=== PATIENT | female | born 1975 | race African-American/Black ===

== ENCOUNTER 2016-05-10 19:27 | Emergency (ER) | payer MEDICAID ==
[~2016-05-10] VITALS: Ht 162.6 cm; Wt 77.1 kg
[~2016-05-10 19:27] MED LIST: AZITHROMYCIN250 MG ORAL; BACTRIM DS TAB1 EAC1 ORAL; BENADRYL50 MG ORAL; CLINDAMYCIN HC150 MG ORAL; IBUPROFEN600 MG ORAL; NKM; ROBAXIN-750750 MG PO; ZANTAC150 MG ORAL
[2016-05-10] MEDS ORDERED: NKM (19:44)
[2016-05-10] MEDS ORDERED: Lidocaine 1% MPF 10mg/ml 5ml INJ ONE (20:15)
[2016-05-10] MEDS ORDERED: Bacitracin Oint UD TOPIC ONE (20:15)
[2016-05-10] MEDS ORDERED: BACTRIM 400-801 EACH ORAL (20:42)
[2016-05-10] MEDS ORDERED: BACITRACIN1 APPLIC TOPIC (20:42)
[2016-05-10] MEDS ORDERED: IBUPROFEN600 MG ORAL (20:42)
[2016-05-10 21:07] VITALS: BP 136/84
[2016-05-10 21:08] VITALS: BP 136/84
--- NOTE | 2016-05-10 21:52 | Emergency Room Report ---
History of Present Illness General Chief Complaint: General Complaint Source: Patient Present Illness HPI The patient is a 41-year-old female presenting with left toe pain which began 2 weeks prior after a visit to the doughnut batter mixer. Pain has been increasing and is now a 10 out of 10 dull ache which is localized to the area. Pain worse with touch. The patient has noticed redness and swelling to the area. The patient denies other symptoms including fever, chills, numbness or tingling, calf swelling, chest pain or shortness of breath Allergies: Coded Allergies: AMOXICILLIN (Unverified Allergy, Unknown, 07/23/13) Patient History Past Medical History: see triage record Pertinent Family History: none Last Menstrual Period: 04/26/2016 Now: No : 2 Para: 2 Reviewed Nursing Documentation: PMH: Agreed, PSxH: Agreed Nursing Documentation-PMH Past Medical History: No Stated History Review of Systems All Other Systems: negative except mentioned in HPI Physical Exam Vital Signs Date Time Temp Pulse Resp B/P Pulse Ox O2 Delivery O2 Flow Rate FiO2 05/10/16 19:36 98.2 66 16 136/84 99 Room Air Sp02 EP Interpretation: reviewed, normal General Appearance: no apparent distress, alert, GCS 15, non-toxic Head: normocephalic, atraumatic Eyes: bilateral eye PERRL, bilateral eye normal inspection Musculoskeletal: back normal, gait/station normal, normal range of motion, non- tender, tender - TTP over L 1st medial nail fold Neurologic: alert, oriented x3, responsive, motor strength/tone normal, sensory intact, speech normal Psychiatric: judgement/insight normal, memory normal, mood/affect normal, no suicidal/homicidal ideation Reflexes: 3+ bicep (R), 3+ bicep (L), 3+ tricep (R), 3+ tricep (L), 3+ knee (R) , 3+ knee (L) Skin: other - There is erythema and edema to the first medial nail fold Lymphatic: no adenopathy Procedures Incision and Drainage Incision and Drainage : Consent: Verbal Site: L 1st toe Blade Size: 11 I & D Procedure: betadine prep, sterile drapes applied, sterile dressing applied Wound Location: lower extremity Wound's Depth, Shape: superficial Wound Length (cm): 2 Wound Explored: contaminated Irrigated w/ Saline (ccs): 100 Anesthesia: 1% Lidocaine Volume Anesthetic (ccs): 4 Splint Applied?: No Sling Applied?: No Patient Tolerated: Well Complications: None Medical Decision Making PA Attestation Dr. Little is my supervising physician. Patient management was discussed with my supervising physician Diagnostic Impression: Primary Impression: Paronychia ER Course The patient is a 41-year-old female presenting with left toe pain which began 2 weeks prior after a visit to the doughnut batter mixer Differential diagnosis considered: Felon, paronychia, sprain Vitals are within normal limits. No apparent distress Left foot: There is erythema and edema to the first medial nail fold. There is fluctuance and tenderness to palpation. No discharge Betadine prep was used to clean the skin and surrounding area. One percent lidocaine without epinephrine was used for digital block. A #11 blade was used to make an incision at the base of the nail. Once the incision was made, purulent material was expressed with blood. The wound was then cleaned and sterile dressing applied. The patient is discharged home with a prescription for Bactrim, Motrin, and bacitracin and will followup with PMD. Patient will continue to keep this area clean and dry. ER precautions are given Last Vital Signs Date Time Temp Pulse Resp B/P Pulse Ox O2 Delivery O2 Flow Rate FiO2 05/10/16 21:08 98.2 16 136/84 99 Room Air 05/10/16 19:36 66 Status: improved Disposition: HOME, SELF-CARE Condition: Improved Scripts Bacitracin (Bacitracin Zinc) 15 Gm Oint...g. 1 APPLIC TOPIC TID, #15 GM Prov: TERZIAN,ALEJANDRO P.A. 05/10/16 Sulfamethoxazole/Trimethoprim (BACTRIM 400-80 MG TABLET*) 1 Each Tablet 1 TAB ORAL TWICE A DAY, #14 TAB Prov: TERZIAN,ALEJANDRO P.A. 05/10/16 Ibuprofen* (MOTRIN*) 600 Mg Tablet 600 MG ORAL Q8H Y for For Pain, #30 TAB 0 Refills Prov: TERZIAN,ALEJANDRO P.A. 05/10/16 [facility] ([facility]P) Patient Instructions: Paronychia Additional Instructions: I discussed my findings with the patient. All questions and concerns have been answered. Treatment and medication compliance have been addressed. I advised the patient that they need to follow up with PMD in 3-5 days. Return to ED if symptoms worsen, new symptoms arise, or if needed for any reason. Patient verbalized understanding of discharge instructions. ALEJANDRO SAMPSON May 10, 2016 21:52
== END 2016-05-10 21:09 | disposition home or self-care (01) ==
LOC: EMR 19:54
DX: L03.032 Cellulitis of left toe (principal); Z88.1 Allergy status to other antibiotic agents
CPT/HCPCS: 10060

== ENCOUNTER 2016-06-27 22:00 | Emergency (ER) | payer MEDICAID ==
[~2016-06-27] VITALS: Ht 162.6 cm; Wt 81.2 kg
[~2016-06-27 22:00] MED LIST changes: +BACITRACIN1 APPLIC TOPIC; +BACTRIM 400-801 EACH ORAL
[2016-06-27 23:05] VITALS: BP_SYST 128; BP_SYST 131; BP_SYST 138; BP_DIAS 73; BP_DIAS 77; BP_DIAS 79
[2016-06-27 23:10] VITALS: BP 122/76
[2016-06-27] MEDS ORDERED: IBUPROFEN600 MG ORAL (23:36)
[2016-06-27 23:49] VITALS: BP 122/76
--- NOTE | 2016-06-28 02:18 | Emergency Room Report ---
History of Present Illness General Chief Complaint: Chest Pain Source: Patient Present Illness HPI Patient is a 41-year-old female presented after increased chest pain. Patient reported having a tightness sensation to the chest. She had associated sore throat as well as a cough. She denied dizziness or lightheadedness. She had not been vomiting or having diarrhea. She denies prior drug use. Patient states that she had not been a smoker. She denies prior cardiac history. She noted having a no numbness or weakness to her extremities. The pain did not radiate. Allergies: Coded Allergies: AMOXICILLIN (Unverified Allergy, Unknown, 07/23/13) Patient History Past Medical History: see triage record Last Menstrual Period: june Reviewed Nursing Documentation: PMH: Agreed, PSxH: Agreed Nursing Documentation-PMH Past Medical History: No Stated History Review of Systems All Other Systems: negative except mentioned in HPI Physical Exam Vital Signs Date Time Temp Pulse Resp B/P Pulse Ox O2 Delivery O2 Flow Rate FiO2 06/27/16 22:12 97.9 66 18 142/84 98 Room Air Sp02 EP Interpretation: reviewed, normal General Appearance: normal inspection, well appearing, no apparent distress, alert, GCS 15, non-toxic Head: atraumatic ENT: normal ENT inspection, hearing grossly normal, normal voice Neck: normal inspection, full range of motion, supple, no bony tend Respiratory: normal inspection, lungs clear, normal breath sounds, no respiratory distress, no retraction, no wheezing Cardiovascular #1: regular rate, rhythm, no edema Gastrointestinal: normal inspection, normal bowel sounds, non tender, soft, no guarding, no hernia Genitourinary: no CVA tenderness Musculoskeletal: normal inspection, back normal, normal range of motion, Leo' s Sign negative, other - trace edema symmmetric BLE Neurologic: normal inspection, alert, oriented x3, responsive, duplex trimmer III-XII nml as tested, speech normal Psychiatric: normal inspection, judgement/insight normal, mood/affect normal Skin: normal inspection, normal color, no rash Medical Decision Making Diagnostic Impression: Primary Impression: Chest pain ER Course Patient presented for chest pain. Differential diagnosis included but was not limited to acute coronary syndrome, pulmonary embolism, pneumonia, aortic dissection, shingles, pneumothorax, aortic dissection, esophageal rupture, pericarditis. Patient's benign exam and does not appear to require any further imaging or laboratory testing at this time. A bedside ultrasound showed no evidence of pericardial effusion. Chest x-ray one view interpreted by me showed normal cardiac size without evident infiltrate or pneumo thorax. The patient given prescription for ibuprofen. The patient is advised to follow up with primary care doctor in 1-2 days. Patient is advised to return if any worsening condition or if any changes in status that are concerning. Labs Test 06/27/16 22:45 Urine HCG, Qualitative Negative EKG Diagnostic Results Rate: normal Rhythm: NSR - 60, other - low voltage ST Segments: no acute changes Chest X-Ray Diagnostic Results EP Interpretation: Yes Findings: no consolidation, no effusion, no pneumothorax, no acute cardiopulmonary disease Number of Views: 1 Last Vital Signs Date Time Temp Pulse Resp B/P Pulse Ox O2 Delivery O2 Flow Rate FiO2 06/27/16 23:49 97.9 62 12 122/76 98 Room Air Status: improved Disposition: HOME, SELF-CARE Condition: Stable Scripts Ibuprofen* (MOTRIN*) 600 Mg Tablet 600 MG ORAL Q8H Y for For Pain, #30 TAB 0 Refills Prov: Godfrey Arana 06/27/16 Referrals: [facility] ([facility]P) Patient Instructions: Nonspecific Chest Pain Godfrey Arana June 28, 2016 02:18
--- NOTE | 2016-06-28 12:33 | Diagnostic Imaging Report ---
Indication: Chest Pain Comparison: 08/17/13 A single view chest radiograph was obtained. Findings: Cardiomediastinal appearance is within normal limits for age. Pulmonary vascularity is appropriate. The diaphragmatic contour is smooth and costophrenic angles are sharp. No pleural effusions are identified. The bones are unremarkable. Impression: No acute findings
--- NOTE | 2016-06-29 17:34 | Cardiology Report ---
APPROVED REPORT EKG Measurement Heart [id number] Normal sinus rhythm Low voltage QRS Borderline ECG
== END 2016-06-27 23:50 | disposition home or self-care (01) ==
LOC: EMR 22:15
DX: R07.9 Chest pain, unspecified (principal); Z88.1 Allergy status to other antibiotic agents
CPT/HCPCS: 71010; 81025; 93005; 99283

== ENCOUNTER 2016-12-24 00:19 | Emergency (ER) | payer MEDICAID ==
[~2016-12-24] VITALS: Ht 162.6 cm; Wt 81.6 kg
[2016-12-24] MEDS ORDERED: Metoclopramide 10mg/2ml Inj IVP ONE (00:45)
[2016-12-24] MEDS ORDERED: DiphenhydrAMINE 50mg/ml Inj IVP ONE (00:45)
[2016-12-24 00:53] LABS: BASOPHILS % (AUTO) 3.7 % (0.0-2.0); EOSINOPHILS % (AUTO) 0.9 % (0.0-3.0); LYMPHOCYTES % (AUTO) 20.4 % (20.0-45.0); MEAN CORPUSCULAR HEMOGLOBIN 28.2 PG (27.0-31.0); MEAN CORPUSCULAR HGB CONC 31.9 G/DL (32.0-36.0); MEAN CORPUSCULAR VOLUME 88 FL (80-99); MEAN PLATELET VOLUME 6.1 FL (6.5-10.1); MONOCYTES % (AUTO) 18.2 % (1.0-10.0); NEUTROPHILS % (AUTO) 56.7 % (45.0-75.0); PLATELET COUNT 295 K/UL (150-450); RED BLOOD COUNT 4.66 M/UL (4.20-5.40); RED CELL DISTRIBUTION WIDTH 12.6 % (11.6-14.8); WHITE BLOOD COUNT 4.5 K/UL (4.8-10.8)
[2016-12-24 01:25] LABS: ALANINE AMINOTRANSFERASE 19 U/L (12-78); ANION GAP 10 mmol/L (5-15); ASPARTATE AMINO TRANSFERASE 11 U/L (15-37); CARBON DIOXIDE 26 MMOL/L (21-32); CHLORIDE 103 MMOL/L (98-107); CREATININE 0.8 MG/DL (0.55-1.30); GLOMERULAR FILTRATION RATE > 60 mL/min (>60); LIPASE 272 U/L (73-393); POTASSIUM 3.5 MMOL/L (3.5-5.1); SODIUM 139 MMOL/L (136-145); TOTAL PROTEIN 7.6 G/DL (6.4-8.2)
[2016-12-24 01:29] LABS: APPEARANCE,URINE CLEAR; KETONES,URINE NEGATIVE (NEGATIVE); LEUKOCYTE ESTERASE ,URINE 1+ (NEGATIVE); NITRITE,URINE NEGATIVE (NEGATIVE); PH,URINE 7 (4.5-8.0); PROTEIN,URINE NEGATIVE (NEGATIVE); UROBILINOGEN,URINE 1 MG/DL (0.0-1.0)
[2016-12-24 01:34] LABS: RBC,URINE 0-2 /HPF (0 - 2); SQUAMOUS EPITHELIAL CELL,UR FEW /LPF (NONE/OCC); WBC,URINE 0-2 /HPF (0 - 2)
[2016-12-24 01:35] LABS: BACTERIA,URINE FEW /HPF
[2016-12-24 01:52] VITALS: BP 139/90
--- NOTE | 2016-12-24 02:37 | Emergency Room Report ---
History of Present Illness General Chief Complaint: Abdominal Pain Source: Patient Present Illness HPI The patient had ingested some soup and then started vomiting copious amounts and having abdominal crampiness. She moved her bowels was fairly formed there was no blood. She felt faint. She called paramedics to bring her to the hospital. No fevers. Pain reported 10/10, cramps with aching, diffuse ( "roiling"). Some better now. No medicines taken. Never with exactly this in past, though has had food poisoning and this is similar. Last period was 3 weeks ago normal for her. She denies any dysuria. No URI sy, chest pain, rashes, joint pain. Seen in past for fall in 2016 and other complaints. Allergies: Coded Allergies: AMOXICILLIN (Unverified Allergy, Unknown, 07/23/13) Patient History Past Medical History: see triage record, old chart reviewed Social History: Denies: smoking Social History Narrative at home Last Menstrual Period: 3 weeks ago Now: No : 2 Reviewed Nursing Documentation: PMH: Agreed, PSxH: Agreed Nursing Documentation-PMH Past Medical History: No Stated History Review of Systems All Other Systems: negative except mentioned in HPI Physical Exam Vital Signs Date Time Temp Pulse Resp B/P (MAP) Pulse Ox O2 Delivery O2 Flow Rate FiO2 12/24/16 00:20 99.3 86 18 142/89 100 Room Air Sp02 EP Interpretation: reviewed, normal General Appearance: well appearing, GCS 15, mild distress Head: normocephalic Eyes: bilateral eye normal inspection, bilateral eye PERRL ENT: moist mucus membranes Neck: supple Respiratory: lungs clear, normal breath sounds Cardiovascular #1: regular rate, rhythm Cardiovascular #2: 2+ radial (R) Gastrointestinal: normal inspection, normal bowel sounds, soft, no mass, non- distended, no guarding, no rebound, tenderness - minimal diffuse Genitourinary: no CVA tenderness Musculoskeletal: back normal, gait/station normal, normal range of motion Neurologic: alert, oriented x3, grossly normal Psychiatric: anxious Skin: normal inspection, warm/dry Medical Decision Making Diagnostic Impression: Primary Impression: Abdominal pain Additional Impression: Nausea & vomiting Qualified Codes: R11.2 - Nausea with vomiting, unspecified ER Course Patient presents with acute episode of vomiting and abdominal crampiness. DDx: GItis, GERD, food poisoning, PUD, pancreatitis, amongst others. Improving without treatment. Evaluation with labs and UA. Treatment with IV hydration, Reglan, Benadryl and Pepcid. Not surgical abdomen at this time. Labs unremarkable. Improved with treatment. Discussed observation at home and further treatment. Patient stable for outpatient observation and treatment. Laboratory Tests Test 12/24/16 01:20 Urine Color Yellow Urine Appearance Clear Urine pH 7 (4.5-8.0) Urine Specific [place] 1.015 (1.005-1.035) Urine Protein Negative (NEGATIVE) Urine Glucose (UA) Negative (NEGATIVE) Urine Ketones Negative (NEGATIVE) Urine Occult Blood 1+ (NEGATIVE) H Urine Nitrite Negative (NEGATIVE) Urine Bilirubin Negative (NEGATIVE) Urine Urobilinogen 1 MG/DL (0.0-1.0) H Urine Leukocyte Esterase 1+ (NEGATIVE) H Urine RBC 0-2 /HPF (0 - 2) Urine WBC 0-2 /HPF (0 - 2) Urine Squamous Epithelial Cells Few /LPF (NONE/OCC) Urine Bacteria Few /HPF (NONE) Urine HCG, Qualitative Negative Last Vital Signs Date Time Temp Pulse Resp B/P (MAP) Pulse Ox O2 Delivery O2 Flow Rate FiO2 12/24/16 04:30 98.9 77 18 128/68 100 Room Air Status: improved Disposition: HOME, SELF-CARE Condition: Improved Scripts Tramadol Hcl* (ULTRAM*) 50 Mg Tablet 50 MG ORAL Q6H Y for For Pain, #6 TAB 0 Refills Prov: Mikal Reese M.D. 12/24/16 Ondansetron Odt* (ZOFRAN ODT*) 4 Mg Tab.rapdis 4 MG ORAL Q8H Y for Nausea & Vomiting, #6 TAB 0 Refills Prov: Mikal Reese M.D. 12/24/16 Referrals: [facility]ERR[facility] (PCP) Mikal Reese M.D. Dec 24, 2016 02:37
[2016-12-24] MEDS ORDERED: TRAMADOL HCL50 MG ORAL (02:42)
[2016-12-24] MEDS ORDERED: ZOFRAN ODT4 MG ORAL (02:42)
[2016-12-24 02:52] VITALS: BP 134/76
[2016-12-24 04:30] VITALS: BP 128/68
== END 2016-12-24 04:30 | disposition home or self-care (01) ==
LOC: EDBD 00:19 → EMR 00:51
DX: R10.9 Unspecified abdominal pain (principal); R11.2 Nausea with vomiting, unspecified; Z88.0 Allergy status to penicillin
CPT/HCPCS: 36415; 80053; 81003; 81025; 83690; 85025; 96361; 96374; 96375; 99284; J1200; J2765; S0028

== ENCOUNTER 2016-12-26 11:37 | Emergency (ER) | payer MEDICAID ==
[~2016-12-26] VITALS: Ht 162.6 cm; Wt 78.9 kg
[~2016-12-26 11:37] MED LIST changes: +TRAMADOL HCL50 MG ORAL; +ZOFRAN ODT4 MG ORAL
[2016-12-26 12:20] VITALS: BP 134/86
--- NOTE | 2016-12-26 12:27 | Emergency Room Report ---
History of Present Illness General Chief Complaint: Upper Respiratory Illness Source: Patient Present Illness [facility] The patient is a 41-year-old female presenting for 3 days of productive cough, subjective fevers, chills, and sore throat. She denies any medical history, sick contacts, or recent travel. She has not had the flu shot this year. She describes sputum as yellow with small amounts of bright red blood. Pain is a 10 out of 10 dull ache to the mid chest with coughing only. Does not radiate. She denies any other symptoms including N, V, SOB, BAZZI, dizziness, weight loss, night sweats Allergies: Coded Allergies: AMOXICILLIN (Unverified Allergy, Unknown, 07/23/13) Patient History Past Medical History: see triage record Pertinent Family History: none Last Menstrual Period: on period Reviewed Nursing Documentation: PMH: Agreed, PSxH: Agreed Nursing Documentation-PMH Past Medical History: No Stated History Review of Systems All Other Systems: negative except mentioned in HPI Physical Exam Vital Signs Date Time Temp Pulse Resp B/P (MAP) Pulse Ox O2 Delivery O2 Flow Rate FiO2 12/26/16 11:57 98.6 81 16 135/87 95 Room Air Sp02 EP Interpretation: reviewed, normal General Appearance: no apparent distress, alert, GCS 15, non-toxic Head: normocephalic, atraumatic Eyes: bilateral eye normal inspection, bilateral eye PERRL ENT: hearing grossly normal, no angioedema, normal voice, uvula midline, pharyngeal erythema Neck: full range of motion, supple/symm/no masses Respiratory: chest non-tender, lungs clear, normal breath sounds, no respiratory distress, no accessory muscle use, no wheezing, speaking full sentences Cardiovascular #1: regular rate, rhythm, no edema Musculoskeletal: back normal, gait/station normal, normal range of motion, non- tender Neurologic: alert, oriented x3, responsive, motor strength/tone normal, sensory intact, speech normal Psychiatric: judgement/insight normal, memory normal, mood/affect normal, no suicidal/homicidal ideation Skin: normal color, no rash, warm/dry, well hydrated Lymphatic: adenopathy Medical Decision Making PA Attestation Dr. Araiza is my supervising physician. Patient management was discussed with my supervising physician Diagnostic Impression: Primary Impression: Pharyngitis, acute Qualified Codes: J02.9 - Acute pharyngitis, unspecified ER Course The patient is a 41-year-old female presenting for sore throat, cough, subjective fevers Differential diagnosis include but not limited to pharyngitis, sinusitis, AOM, bronchitis, PNA Physical exam: Vitals within normal limits. Afebrile. No apparent distress HEENT exam: There is bilateral tonsillar edema, erythema, and exudate. Uvula midline. Moist mucous membranes. There is bilateral cervical lymphadenopathy. Lungs are clear to auscultation bilaterally Skin is warm and dry. No rash CXR unremarkable Flu: neg The patient will be discharged home with a prescription for azithromycin, motrin , and cough medication and is given ER precautions. Patient will followup with primary care Microbiology Date/Time Source Procedure Growth Status 12/26/16 12:30 Nasal Nares Influenza Types A,B Antigen (CARLOS) - Final Complete Lab Results Impression Influenza neg Chest X-Ray Diagnostic Results Chest X-Ray Diagnostic Results : Chest X-Ray Ordered: Yes # of Views/Limited/Complete: 1 View Indication: Other - cough EP Interpretation: Yes PA Xray: Interpretation reviewed, by supervising MD, and agrees with findings. Interpretation: no consolidation, no effusion, no pneumothorax, no acute cardiopulmonary disease Impression: No acute disease Electronically Signed by: James Sampson PA-C Last Vital Signs Date Time Temp Pulse Resp B/P (MAP) Pulse Ox O2 Delivery O2 Flow Rate FiO2 12/26/16 11:57 98.6 81 16 135/87 95 Room Air Status: improved Disposition: HOME, SELF-CARE Condition: Improved Scripts Ibuprofen* (MOTRIN*) 600 Mg Tablet 600 MG ORAL Q8H Y for For Pain, #30 TAB 0 Refills Prov: JAMES SAMPSON.A. 12/26/16 Azithromycin* (ZITHROMAX*) 250 Mg Tablet 250 MG ORAL DAILY, #6 TAB 0 Refills Take two tables once daily for 1 day, then one tablet once daily for 4 days. Prov: JAMES SAMPSONA. 12/26/16 Codeine/Promethazine Hcl* (PROMETHAZINE-CODEINE SYRUP*) 118 Ml Syrup 5 ML ORAL Q6H Y for For Cough, #118 ML 0 Refills Prov: JAMES SAMPSONAJames 12/26/16 JAMES SAMPSON Dec 26, 2016 12:27
[2016-12-26] MEDS ORDERED: PROMETHAZINE-C118 M1 ORAL (13:04)
[2016-12-26] MEDS ORDERED: ZITHROMAX250 MG ORAL (13:04)
[2016-12-26] MEDS ORDERED: IBUPROFEN600 MG ORAL (13:04)
--- NOTE | 2016-12-26 13:08 | Diagnostic Imaging Report ---
Indication: COUGH Technique: One view of the chest Comparison: none Findings: Lungs and pleural spaces are clear. Heart size is normal. Impression: No acute process
[2016-12-26 13:29] VITALS: BP 141/89
== END 2016-12-26 13:29 | disposition home or self-care (01) ==
LOC: EMR 12:35
DX: J02.9 Acute pharyngitis, unspecified (principal); Z88.0 Allergy status to penicillin
CPT/HCPCS: 71010; 86710; 99284

== ENCOUNTER 2017-07-18 06:01 | Emergency (ER) | payer MEDICAID ==
[~2017-07-18] VITALS: Ht 162.6 cm; Wt 77.1 kg
[~2017-07-18 06:01] MED LIST changes: +PROMETHAZINE-C118 M1 ORAL; +ZITHROMAX250 MG ORAL
[2017-07-18 06:20] VITALS: BP 137/78
[2017-07-18] MEDS ORDERED: IBUPROFEN600 MG ORAL (06:52)
--- NOTE | 2017-07-18 06:53 | Emergency Room Report ---
History of Present Illness General Chief Complaint: Pain Source: Patient Present Illness HPI This is a 42-year-old female with no significant past medical history. She presents with chief complaint of left ankle pain. She woke up with throbbing pain to the Achilles tendon area. No trauma. She says for the last couple weeks she been walking 5 blocks [id number] on high heels. Pain is worse with pushing off. Better with rest. Denies any fever or chills. Pain is 7 out of 10. Allergies: Coded Allergies: AMOXICILLIN (Unverified Allergy, Unknown, 07/18/17) Patient History Past Medical History: see triage record, old chart reviewed Past Surgical History: other Pertinent Family History: none Social History: Denies: smoking Last Menstrual Period: now Now: No Immunizations: other Reviewed Nursing Documentation: PMH: Agreed; PSxH: Agreed Nursing Documentation-PMH Past Medical History: No Stated History Review of Systems Eye: Denies: eye pain, blurred vision ENT: Denies: ear pain, nose congestion, throat swelling Respiratory: Denies: cough, shortness of breath Cardiovascular: Denies: chest pain, palpitations Gastrointestinal: Denies: abdominal pain, diarrhea, nausea, vomiting Musculoskeletal: Reports: joint pain; Denies: back pain Skin: Denies: rash Neurological: Denies: headache, numbness Endocrine: Denies: increased thirst, increased urine Hematologic/Lymphatic: Denies: easy bruising All Other Systems: negative except mentioned in HPI Physical Exam Vital Signs Date Time Temp Pulse Resp B/P (MAP) Pulse Ox O2 Delivery O2 Flow Rate FiO2 07/18/17 06:07 97.9 66 16 137/78 98 Room Air 97.9 vitals normal Sp02 EP Interpretation: reviewed, normal General Appearance: well appearing, no apparent distress, alert Head: normocephalic, atraumatic Eyes: bilateral eye PERRL, bilateral eye EOMI ENT: hearing grossly normal, normal pharynx Neck: full range of motion, supple, no meningismus Respiratory: chest non-tender, lungs clear, normal breath sounds Cardiovascular #1: regular rate, rhythm, no murmur Gastrointestinal: normal bowel sounds, non tender, no mass, no organomegaly, no bruit, non-distended Musculoskeletal: back normal, gait/station normal, normal range of motion, tender - over left Achilles tendon. No deformity. Neurologic: alert, oriented x3 Psychiatric: mood/affect normal Skin: warm/dry Procedures Splinting Splinting : Consent: Verbal Location: left ankle Hand-Made Type: plaster Splint: poserior short - in equis position Pre-Proc Neuro Vasc Exam: normal Post-Proc Neuro Vasc Exam: normal Patient Tolerated: Well Complications: None Medical Decision Making Diagnostic Impression: Primary Impression: Achilles tendinitis of left lower extremity ER Course Patient with Achilles tendinitis of the left leg. No rupture. No evidence of septic joint. No evidence of necrotizing fasciitis. No DVT. Other X-Ray Diagnostic Results Other X-Ray Diagnostic Results : X-Ray ordered: left ankle # of Views/Limited Vs Complete: 3 View Indication: Pain EP Interpretation: Yes Interpretation: no dislocation, no soft tissue swelling, no fractures Impression: No acute disease Electronically Signed by: Jose Aldana MD Last Vital Signs Date Time Temp Pulse Resp B/P (MAP) Pulse Ox O2 Delivery O2 Flow Rate FiO2 07/18/17 06:07 97.9 66 16 137/78 98 Room Air 97.9 Status: improved Disposition: HOME, SELF-CARE Condition: Stable Scripts Ibuprofen* (MOTRIN*) 600 Mg Tablet 600 MG ORAL THREE TIMES A DAY, #30 TAB 0 Refills Prov: JOSE ALDANA M.D. 07/18/17 Referrals: [facility]ERR[facility] (PCP) Additional Instructions: Rest. Elevate leg. Use crutches. Ice pack area. Follow-up your doctor in 7 days. Return if symptom worsen. Do not wear high heels for now. JOSE ALDANA M.D. July 18, 2017 06:53
[2017-07-18 07:08] VITALS: BP 137/78
--- NOTE | 2017-07-18 13:25 | Diagnostic Imaging Report ---
Indication: Reason For Exam: PAIN Technique: 3 views of the left ankle Comparison: none Findings: No acute fractures. No dislocations. The joint spaces are preserved. There are small plantar and calcaneal spurs Impression: No acute process
== END 2017-07-18 07:10 | disposition home or self-care (01) ==
LOC: EMR 06:22
DX: M76.62 Achilles tendinitis, left leg (principal); Z88.0 Allergy status to penicillin
CPT/HCPCS: 99283

== ENCOUNTER 2017-12-27 09:55 | Emergency (ER) | payer SELFPAY ==
[~2017-12-27] VITALS: Ht 165.1 cm; Wt 74.8 kg
[2017-12-27 10:02] VITALS: BP 123/83
[2017-12-27] MEDS ORDERED: ROBAXIN-750750 MG PO (10:31)
[2017-12-27] MEDS ORDERED: IBUPROFEN600 MG ORAL (10:31)
[2017-12-27 10:34] VITALS: BP 123/83
--- NOTE | 2017-12-27 10:36 | Emergency Room Report ---
History of Present Illness General Chief Complaint: Lower Back Pain or Injury Source: Patient Present Illness HPI Patient presents with complaints of low back pain mainly left lower back reports that over the past 7 days she has had multiple call offs at work and therefore she had to do significantly increased number of lifting bending and stooping Pain has progressively worsened in the lower back now mainly left lower back Denies any focal weakness denies any bowel or urinary incontinence Denies any neuropathy Denies any fevers or chills pain is worse with moving and better with rest Allergies: Coded Allergies: AMOXICILLIN (Unverified Allergy, Unknown, 12/27/17) Patient History Past Medical History: see triage record Pertinent Family History: none Last Menstrual Period: currently Reviewed Nursing Documentation: PMH: Agreed; PSxH: Agreed Nursing Documentation-PMH Past Medical History: No Stated History Review of Systems All Other Systems: negative except mentioned in HPI Physical Exam Vital Signs Date Time Temp Pulse Resp B/P (MAP) Pulse Ox O2 Delivery O2 Flow Rate FiO2 12/27/17 10:02 98.1 74 16 123/83 97 Room Air Sp02 EP Interpretation: reviewed, normal General Appearance: no apparent distress Head: normocephalic, atraumatic Eyes: bilateral eye PERRL, bilateral eye EOMI ENT: hearing grossly normal, normal pharynx, TMs + canals normal, uvula midline Neck: full range of motion, supple, no meningismus, no bony tend Respiratory: lungs clear, normal breath sounds, no rhonchi, no respiratory distress, no retraction, no accessory muscle use Cardiovascular #1: normal peripheral pulses, regular rate, rhythm, no edema, no gallop, no JVD, no murmur Gastrointestinal: normal bowel sounds, non tender, soft, no mass, no organomegaly, non-distended, no guarding, no hernia, no pulsatile mass, no rebound Genitourinary: no CVA tenderness Musculoskeletal: other - Mild increased discomfort left lower back region also left paraspinal L3 to 4, no midline step-offs neurologically intact Neurologic: oriented x3, responsive, 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 nml as tested, motor strength/ tone normal, sensory intact Psychiatric: mood/affect normal Skin: normal color, no rash, warm/dry, palpation normal Lymphatic: normal inspection, no adenopathy Medical Decision Making Diagnostic Impression: Primary Impression: back sprain ER Course Patient's clinical history and exam is consistent with back sprain, strain there is a component of sciatic nerve discomfort as well Patient will benefit from conservative outpatient trial And will return with any changes Consideration for neurological, neurosurgical, infectious pathology was also made however does not clinically warranted further evaluation at this time Last Vital Signs Date Time Temp Pulse Resp B/P (MAP) Pulse Ox O2 Delivery O2 Flow Rate FiO2 12/27/17 10:02 98.1 63 16 123/83 97 Room Air Status: improved Disposition: HOME, SELF-CARE Condition: Stable Scripts Methocarbamol* (ROBAXIN-750*) 750 Mg Tablet 750 MG PO TID, #21 TAB 0 Refills Prov: Milan Linares DO 12/27/17 Ibuprofen* (MOTRIN*) 600 Mg Tablet 600 MG ORAL Q8H PRN for For Pain, #20 TAB 0 Refills Prov: Milan Linarse DO 12/27/17 Referrals: NOT CHOSEN [facility]/MD,REFERRING (PCP) Departure Forms: Return to Work Return to Work in (Days): 2 Return to Work Date: Dec 29, 2017 Patient Instructions: Lumbosacral Strain, Back Pain, Adult Additional Instructions: Patient is provided with the discharge instructions notified to follow up with primary doctor in the next 2-3 days otherwise return to the er with any worsening symptoms. Please note that this report is being documented using [employer] technology. This can lead to erroneous entry secondary to incorrect interpretation by the dictating instrument. Milan Linares DO Dec 27, 2017 10:36
== END 2017-12-27 10:35 | disposition home or self-care (01) ==
LOC: EMR 10:30
DX: S33.5XXA Sprain of ligaments of lumbar spine, initial encounter (principal); X50.0XXA Overexertion from strenuous movement or load, initial encounter; Y92.89 Other specified places as the place of occurrence of the external cause; Z88.0 Allergy status to penicillin
CPT/HCPCS: 99283

== ENCOUNTER 2018-03-11 21:21 | Emergency (ER) | payer MEDICAID, OTHER ==
[~2018-03-11] VITALS: Ht 165.1 cm; Wt 74.8 kg
[~2018-03-11 21:21] MED LIST changes: +NITROFURANTOIN100 M2 ORAL
[2018-03-11 21:25] VITALS: BP 136/79
--- NOTE | 2018-03-11 21:25 | NUR ---
ED Nurse Note: Pt walked into ER stating that she diahhrea for 2 days. today the pt states shes has had 10 small episodes of diahhrea today. pt is Alert and orientated times 4. cap refill is less than 3. no skin tenting. pt is able to ambulate. Pt is AO x 4times, VSS, on room air no distress. ERMD seen Pt at bedside.
[2018-03-11] MEDS ORDERED: ANTI-DIARRHEA2 MG PO (22:09)
[2018-03-11] MEDS ORDERED: DICYCLOMINE HCL10 MG PO (22:09)
[2018-03-11 22:13] VITALS: BP 131/81
--- NOTE | 2018-03-11 22:13 | NUR ---
ED Nurse Note: Pt cleared DC by ERMKody. Pt is AO x 4times, VSS, on room air no distress. Belongings given to Pt. DC and meds instructions given to Pt, Pt understood well. ID bend removed. Pt walkled out unit with steady gait.
[2018-03-11] MEDS ORDERED: Dicyclomine HCl 10mg/5ml oral soln ORAL ONE (22:15)
[2018-03-11] MEDS ORDERED: Loperamide 2mg cap ORAL ONE (22:15)
[2018-03-11 22:39] LABS: BILIRUBIN, URINE NEGATIVE (NEGATIVE); GLUCOSE, URINE (UA) NEGATIVE (NEGATIVE); KETONES,URINE 1+ (NEGATIVE); LEUKOCYTE ESTERASE ,URINE 1+ (NEGATIVE); NITRITE,URINE NEGATIVE (NEGATIVE); PH,URINE 5 (4.5-8.0); PROTEIN,URINE 2+ (NEGATIVE); UROBILINOGEN,URINE NORMAL MG/DL (0.0-1.0)
[2018-03-11 22:42] LABS: APPEARANCE,URINE CLOUDY; COLOR,URINE PALE YELLOW
[2018-03-12] MEDS ORDERED: ONDANSETRON ODT4 MG BC (06:36)
--- NOTE | 2018-03-18 15:15 | Emergency Room Report ---
History of Present Illness General Chief Complaint: Diarrhea Source: Patient Present Illness HPI Patient is a 42-year-old female presented after increased diarrhea. Patient reports of increased abdominal cramping as well as watery diarrhea. Patient had episodes for several days. She denies any bloody stools. She denies any vomiting. Denies any fever. She reported having some sick contacts. Allergies: Coded Allergies: AMOXICILLIN (Unverified Allergy, Unknown, 12/27/17) Patient History Past Medical History: see triage record Last Menstrual Period: on it now Now: No : 2 Para: 2 Reviewed Nursing Documentation: PMH: Agreed; PSxH: Agreed Nursing Documentation-PMH Past Medical History: No Stated History Review of Systems All Other Systems: negative except mentioned in HPI Physical Exam General Appearance: well appearing, no apparent distress, alert, GCS 15 Head: normocephalic, atraumatic ENT: hearing grossly normal, normal voice Neck: full range of motion, supple Respiratory: no respiratory distress, speaking full sentences Cardiovascular #1: normal inspection, regular rate, rhythm, no edema Gastrointestinal: normal inspection, non tender, soft Musculoskeletal: normal inspection, no calf tenderness Neurologic: normal inspection, alert, oriented x3, responsive, normal gait Psychiatric: mood/affect normal Skin: no rash Medical Decision Making Diagnostic Impression: Primary Impression: Gastroenteritis ER Course . Patient presented for diarrhea. Differential diagnosis include was not limited to gastroenteritis, colitis, appendicitis among others. Patient has a benign exam and does not appear to require any further imaging or laboratory testing at this time. Urine test was negative. The patient is advised to follow up with primary care doctor in 1-2 days. Patient is advised to return if any worsening condition or if any changes in status that are concerning. This report is dictated with [employer] application spec software which may occasionally lead to discrepancies related to use of this software. Labs Test 03/11/18 22:00 Urine Color Pale yellow Urine Appearance Cloudy Urine pH 5 (4.5-8.0) Urine Specific [place] 1.030 (1.005-1.035) Urine Protein 2+ (NEGATIVE) Urine Glucose (UA) Negative (NEGATIVE) Urine Ketones 1+ (NEGATIVE) Urine Blood 5+ (NEGATIVE) Urine Nitrite Negative (NEGATIVE) Urine Bilirubin Negative (NEGATIVE) Urine Urobilinogen Normal MG/DL (0.0-1.0) Urine Leukocyte Esterase 1+ (NEGATIVE) Urine RBC 5-10 /HPF (0 - 2) Urine WBC 2-4 /HPF (0 - 2) Urine Squamous Epithelial Cells Few /LPF (NONE/OCC) Urine Amorphous Sediment Many /LPF (NONE) Urine Bacteria Many /HPF (NONE) Urine HCG, Qualitative Negative (NEGATIVE) Status: improved Disposition: HOME, SELF-CARE Condition: Stable Scripts Loperamide Hcl (ANTI-DIARRHEA) 2 Mg Tablet 2 MG PO DAILY, #20 TAB Prov: Godfrey Arana MD 03/11/18 Dicyclomine Hcl* (DICYCLOMINE HCL*) 10 Mg Capsule 10 MG PO QID, #30 CAP Prov: Godfrey Arana MD 03/11/18 Referrals: NOT CHOSEN [facility]/,REFERRING (PCP) Patient Instructions: Viral Gastroenteritis, Adult Godfrey Arana MD Mar 18, 2018 15:15
== END 2018-03-11 22:13 | disposition home or self-care (01) ==
LOC: EMR 21:43
DX: K52.9 Noninfective gastroenteritis and colitis, unspecified (principal); Z88.0 Allergy status to penicillin
CPT/HCPCS: 81003; 81025; 87086; 99283

== ENCOUNTER 2018-05-12 22:40 | Emergency (ER) | payer MEDICAID ==
[~2018-05-12] VITALS: Ht 165.1 cm; Wt 77.1 kg
[~2018-05-12 22:40] MED LIST changes: +ANTI-DIARRHEA2 MG PO; +DICYCLOMINE HCL10 MG PO; +ONDANSETRON ODT4 MG BC
[2018-05-12 23:10] VITALS: BP 135/83
--- NOTE | 2018-05-12 23:10 | NUR ---
ED Nurse Note: Pt arrived ED from home, c/o headache for few days. Pt is A/O X 4. Vital signs stable at this time, waitng for orders.
--- NOTE | 2018-05-12 23:15 | NUR ---
ED Nurse Note: Pt has seen by Dr. Arana. Urine sample collected and sent to Lab.
[2018-05-12 23:39] LABS: APPEARANCE,URINE CLEAR; BILIRUBIN, URINE NEGATIVE (NEGATIVE); COLOR,URINE PALE YELLOW; GLUCOSE, URINE (UA) NEGATIVE (NEGATIVE); KETONES,URINE NEGATIVE (NEGATIVE); LEUKOCYTE ESTERASE ,URINE 1+ (NEGATIVE); NITRITE,URINE NEGATIVE (NEGATIVE); PH,URINE 5 (4.5-8.0); PROTEIN,URINE NEGATIVE (NEGATIVE); UROBILINOGEN,URINE NORMAL MG/DL (0.0-1.0)
[2018-05-13] MEDS ORDERED: ZITHROMAX250 MG ORAL (00:21)
[2018-05-13] MEDS ORDERED: GUAIFENESIN DM118 M1 ORAL (00:21)
[2018-05-13 00:30] VITALS: BP 131/82
--- NOTE | 2018-05-13 00:30 | NUR ---
ER DISCHARGE NOTE: Patient is cleared to be discharged per Dr. Arana. Pt is A/ox4 on room air with stable vital signs. Pt was given dc and prescription instructions, pt was able to verbalize understanding. Pt's ID band and iv site removed without complications. Pt is able to ambulate with steady gait, pt took all belongings.
--- NOTE | 2018-05-13 13:50 | Emergency Room Report ---
History of Present Illness General Chief Complaint: Upper Respiratory Illness Source: Patient Present Illness HPI Patient is a 43-year-old female presented after increased cough and congestion. Patient reports of increased productive cough with yellow-green sputum. She denies being a smoker. She had not been vomiting. She reports having some increased generalized body aches. She denies any significant chest discomfort patient been having some subjective fevers. Patient denies any exertional chest pain or hematemesis. She reports having mild to moderate headache. Allergies: Coded Allergies: AMOXICILLIN (Unverified Allergy, Unknown, 12/27/17) Patient History Past Medical History: see triage record Last Menstrual Period: Now Now: No Reviewed Nursing Documentation: PMH: Agreed; PSxH: Agreed Nursing Documentation-PMH Past Medical History: No Stated History Review of Systems All Other Systems: negative except mentioned in HPI Physical Exam Vital Signs Date Time Temp Pulse Resp B/P (MAP) Pulse Ox O2 Delivery O2 Flow Rate FiO2 05/12/18 22:53 98.2 67 20 140/84 96 Room Air General Appearance: well appearing, no apparent distress, alert, GCS 15 Head: normocephalic, atraumatic ENT: hearing grossly normal, normal voice Neck: full range of motion, supple Respiratory: no respiratory distress, rhonchi, speaking full sentences Cardiovascular #1: normal inspection, regular rate, rhythm, no edema, no murmur Musculoskeletal: normal inspection, back normal, no calf tenderness Neurologic: normal inspection, alert, oriented x3, normal gait Psychiatric: mood/affect normal Skin: no rash Medical Decision Making Diagnostic Impression: Primary Impression: Pneumonitis ER Course Patient presented for cough.Differential diagnosis included but was not limited to bronchitis, pneumonia, pulmonary embolism, pericarditis, asthma, foreign body. Patient has a benign exam and does not appear to require any further imaging or laboratory testing at this time. Influenza nasal swab was noted to have been negative. Patient's is what appears to be a pneumonitis. Patient was given prescription for oral antibiotics as well as medications for cough. She is advised to follow-up with her primary care physician for recheck. She is advised to return for increased shortness of breath dizziness or other concerns. Labs Test 05/12/18 23:20 Urine Color Pale yellow Urine Appearance Clear Urine pH 5 (4.5-8.0) Urine Specific [place] 1.025 (1.005-1.035) Urine Protein Negative (NEGATIVE) Urine Glucose (UA) Negative (NEGATIVE) Urine Ketones Negative (NEGATIVE) Urine Blood 3+ (NEGATIVE) Urine Nitrite Negative (NEGATIVE) Urine Bilirubin Negative (NEGATIVE) Urine Urobilinogen Normal MG/DL (0.0-1.0) Urine Leukocyte Esterase 1+ (NEGATIVE) Urine RBC 0-2 /HPF (0 - 2) Urine WBC 0-2 /HPF (0 - 2) Urine Squamous Epithelial Cells Few /LPF (NONE/OCC) Urine Bacteria Few /HPF (NONE) Urine HCG, Qualitative Negative (NEGATIVE) Last Vital Signs Date Time Temp Pulse Resp B/P (MAP) Pulse Ox O2 Delivery O2 Flow Rate FiO2 05/13/18 00:30 98.1 67 20 131/82 97 Room Air Status: improved Disposition: HOME, SELF-CARE Condition: Improved Scripts Guaifenesin/Dextromethorphan (Guaifenesin Dm Syrup) 5 Ml Syrup 1 TSP ORAL Q8H, #118 ML 0 Refills Prov: Godfrey Arana MD 05/13/18 Azithromycin* (ZITHROMAX*) 250 Mg Tablet 250 MG ORAL DAILY, #6 TAB 0 Refills Take two tables once daily for 1 day, then one tablet once daily for 4 days. Prov: Godfrey Arana MD 05/13/18 Referrals: NOT CHOSEN [facility]/,REFERRING Patient Instructions: Pneumonitis Godfrey Arana MD May 13, 2018 13:50
== END 2018-05-13 00:30 | disposition home or self-care (01) ==
LOC: EMR 23:35
DX: J18.9 Pneumonia, unspecified organism (principal); Z88.0 Allergy status to penicillin
CPT/HCPCS: 81003; 81025; 86710; 99283